=== PATIENT | female | born 1970 | race African-American/Black ===

== ENCOUNTER 2016-08-28 11:22 | Emergency (ER) | payer SELFPAY ==
[~2016-08-28] VITALS: Ht 165.1 cm; Wt 80.0 kg
[~2016-08-28 11:22] MED LIST: 1-ME1LIQ PO; AMLO5TAB2 PO; ASPI325T PO; CLON.2 PO; LISI-363 PO; NORC5TAB PO
[2016-08-28 11:23] VITALS: BP 220/104; PULSE 87; RESP 18; TEMP 98.4; O2SAT 99
[2016-08-28 12:00] VITALS: BP 224/101
--- NOTE | 2016-08-28 12:09 | PD ---
HPI Chief Complaint: Cold / Flu Symptoms Time Seen by Provider: 12:09 Travel History International Travel<30 days: No Contact w/Intl Traveler<30days: No Traveled to known affect area: No History of Present Illness HPI 45-year-old female presents to the emergency department for evaluation of productive cough for 2 weeks. She denies any fevers or chills. She does report congestion. She also reports chest pain with coughing only. Patient reports no chest pain before coughing. Patient also reports mild headache, not the most severe headache she has ever had. She states she's had it for approximately 1-2 months. Patient denies any abdominal pain. No nausea or vomiting. 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 She states she has been off her amlodipine and lisinopril since she was last seen. She denies any shortness of breath. According the records, she was last seen in March 2016. She states she does not currently have a primary care physician. She denies any other chronic medical problems. Patient denies any other complaints at this time. PFSH Past Medical History Arthritis: Yes Blood Disorders: No Anxiety: No Depression: No Heart Rhythm Problems: No Cancer: No Cardiovascular Problems: Yes High Cholesterol: Yes Chest Pain: Yes Congestive Heart Failure: No Cerebrovascular Accident: No Diminished Hearing: No Deep Vein Thrombosis: Yes Endocrine: No Gastrointestinal Disorders: No Genitourinary: No Headaches: Yes Hypertension: Yes Immune Disorder: No Implanted Vascular Access Dvce: No Musculoskeletal: Yes Neurologic: Yes Psychiatric: Yes Reproductive: No Respiratory: No Migraines: No Myocardial Infarction: No Seizures: No ?: Not : 4 Para: 3 : 1 Tubal Ligation: Yes Past Surgical History Abdominal Surgery: No Cardiac Surgery: No Ear Surgery: No Endocrine Surgery: No Eye Surgery: No Genitourinary Surgery: No Gynecologic Surgery: Yes (ABLATION) Neurologic Surgery: No Oral Surgery: No Pacemaker: No Thoracic Surgery: No Other Surgery: Yes (AMP OF TIP OF LEFT 3RD, 4TH TOES, FEMORAL STENTS BILAT) Social History Alcohol Use: Yes (occ) Tobacco Use: Yes (OCC) Substance Use: No Allergies-Medications (Allergen,Severity, Reaction): Coded Allergies: No Known Allergies (Verified , 08/28/16) Reported Meds & Prescriptions Reported Meds & Active Scripts Active No Active Prescriptions or Reported Medications Review of Systems Except as stated in HPI: all other systems reviewed are Neg Physical Exam Narrative GENERAL: Well-nourished, well-developed female patient, ambulatory. Afebrile. SKIN: Focused skin assessment warm/dry. HEAD: Normocephalic. Atraumatic. EYES: No scleral icterus. No injection or drainage. NECK: Supple, trachea midline. No JVD or lymphadenopathy. CARDIOVASCULAR: Regular rate and rhythm without murmurs, gallops, or rubs. RESPIRATORY: Breath sounds equal bilaterally. No accessory muscle use. Lungs sounds are clear to auscultation. GASTROINTESTINAL: Abdomen soft, non-tender, nondistended. MUSCULOSKELETAL: No cyanosis, or edema. BACK: Nontender without obvious deformity. No CVA tenderness. Data Data Last Documented VS Vital Signs Date Time Temp Pulse Resp B/P Pulse Ox O2 Delivery O2 Flow Rate FiO2 08/28/16 12:30 68 16 216/108 97 Room Air 08/28/16 11:23 98.4 Orders Chest, Single Ap (08/28/16 ) Amlodipine (Norvasc) (08/28/16 12:15) Lisinopril (Prinivil) (08/28/16 12:15) MDM Medical Decision Making Medical Screen Exam Complete: Yes Emergency Medical Condition: Yes Medical Record Reviewed: Yes Interpretation(s) Last Impressions Chest X-Ray 08/28/16 0000 Signed Impressions: Service Date/Time: Sunday, August 28, 2016 12:21 - CONCLUSION: No acute disease. Weston Jose MD Differential Diagnosis URI versus bronchitis versus pneumonia versus hypertension Narrative Course 45-year-old female presents to the emergency department for evaluation of productive cough for 2 weeks. She is also found to be hypertensive in triage, 224/101. He states that she has a history of the same and has been off her blood pressure medication since March. Patient does appear well on exam. Lungs sounds are clear to auscultation. Chest x-ray is ordered and pending. Patient is given amlodipine 5 mg by mouth and lisinopril 20 mg by mouth. Chest x-ray shows no acute disease. Patient will be discharged with a prescription for Tessalon Perles for cough. She'll also be given prescription for amlodipine and lisinopril for her chronic hypertension. She is instructed to follow-up with a primary care physician. She is given information for community clinic. The patient verbalizes agreement and understanding. Diagnosis Primary Impression: Viral URI with cough Additional Impression: Hypertension Qualified Code: I10 - Essential hypertension Referrals: [facility] 2 days Patient Instructions: Chronic Hypertension (ED), General Instructions, Upper Respiratory Infection (ED) Additional Instructions: Take blood pressure medications as directed. Please follow up at the community clinic for blood pressure management. Information is provided. Take benzonatate capsules as directed as needed for cough Return to the emergency department for any acute, worsening of symptoms. Med/Other Pt SpecificInfo: Prescription(s) given Scripts Benzonatate 200 Mg [id number] Mg PO TID PRN (COUGH) #21 CAP Ref 0 Prov:Candice Gerardo 08/28/16 Lisinopril 20 Mg Tab20 Mg PO DAILY #30 TAB Ref 0 Prov:Candice Gerardo 08/28/16 Amlodipine 5 Mg Tab5 Mg PO DAILY #30 TAB Ref 0 Prov:Candice Gerardo 08/28/16 Disposition: 01 DISCHARGE HOME Condition: Stable Candice Gerardo Aug 28, 2016 12:09
[2016-08-28] MEDS ORDERED: LISINOPRIL 20 MG TAB PO ONE (12:15)
[2016-08-28] MEDS ORDERED: amLODIPine BESYLATE 5 MG TAB PO ONE (12:15)
[2016-08-28 12:30] VITALS: BP 216/108; PULSE 68; RESP 16; O2SAT 97
--- NOTE | 2016-08-28 13:46 | RADRPT ---
EXAM DATE/TIME: 08/28/2016 12:21 [place] COMPARISON: CHEST SINGLE AP, April 18, 2016, 7:39. INDICATIONS : Short of breath. MEDICAL HISTORY : None. SURGICAL HISTORY : None. ENCOUNTER: Initial ACUITY: 2 weeks PAIN SCORE: 0/10 LOCATION: Bilateral chest FINDINGS: A single view of the chest demonstrates the lungs to be symmetrically aerated without evidence of mas s, infiltrate or effusion. The cardiomediastinal contours are unremarkable. Osseous structures are intact. CONCLUSION: No acute disease. Weston Jose MD on August 28, 2016 at 13:44 Board Certified Radiologist. This report was verified electronically.
--- NOTE | 2016-08-28 13:52 | PD ---
Data Data Last Documented VS Vital Signs Date Time Temp Pulse Resp B/P Pulse Ox O2 Delivery O2 Flow Rate FiO2 08/28/16 12:30 68 16 216/108 97 Room Air 08/28/16 11:23 98.4 Orders Chest, Single Ap (08/28/16 ) Amlodipine (Norvasc) (08/28/16 12:15) Lisinopril (Prinivil) (08/28/16 12:15) MDM Supervised Visit with ASAD: Yes Narrative Course I, Dr. Walker, have reviewed the advance practice practioner's documentation and am in agreement, met with the patient face to face, made the diagnosis, and the medical decision making was done by me. *My assessment and Findings: 45-year-old female here with 2 weeks of productive cough. Associated mild headache. No fevers or chills. No hemoptysis. Well- appearing on exam, though hypertensive. Lungs are clear to auscultation bilaterally. Differential includes viral syndrome, influenza, bronchitis, pneumonia, asymptomatic hypertension. Chest x-ray unremarkable. Patient reassured and discharged home and encouraged to follow up with primary care provider to establish care for her hypertension. Scripts No Active Prescriptions or Reported Meds Jeannette Walker MD Aug 28, 2016 13:52
[2016-08-28] MEDS ORDERED: AMLO5TAB2 PO (13:57)
[2016-08-28] MEDS ORDERED: BENZ1CAP34 PO (13:57)
[2016-08-28] MEDS ORDERED: LISI-515 PO (13:57)
== END 2016-08-28 14:36 | disposition home or self-care (01) ==
LOC: NEPD 11:22
DX: J06.9 Acute upper respiratory infection, unspecified (principal); R05 Cough; I10 Essential (primary) hypertension; R51 Headache; E78.00 Pure hypercholesterolemia, unspecified; Z86.718 Personal history of other venous thrombosis and embolism; Z72.0 Tobacco use
CPT/HCPCS: 71010; 99283

== ENCOUNTER 2017-11-03 10:08 | Emergency (ER) | payer SELFPAY ==
[~2017-11-03] VITALS: Ht 165.1 cm; Wt 68.0 kg
[~2017-11-03 10:08] MED LIST changes: -1-ME1LIQ PO; -ASPI325T PO; +BENZ1CAP51 PO; -CLON.2 PO; -LISI-363 PO; +LISI-515 PO; -NORC5TAB PO
[2017-11-03 10:11] VITALS: BP 200/83; PULSE 55; RESP 16; TEMP 97.7; O2SAT 100
[2017-11-03 10:28] VITALS: BP 168/71; O2SAT 98
[2017-11-03] MEDS ORDERED: cloNIDine HCL 0.1 MG TAB PO ONE (10:30)
--- NOTE | 2017-11-03 11:11 | PD ---
Physical Exam Date Seen by Provider: Nov 03, 2017 Time Seen by Provider: 11:09 Narrative 47-year-old female came to the emergency room with history of some bumps that she has noticed on her left upper thigh laterally. Patient says it has been couple days and she has noticed this. It hurts. She was concerned about blood clot because she has history of blood clot in her legs apparently. But she also says that she had a stent put in in her groin. She has also noticed some bumps on her left upper abdominal wall. Vital signs otherwise stable. Patient is seen by my nurse practitioner and I am supervising her. The exam showed some subcutaneous nodules on her left lateral upper thigh that were slightly tender to touch. There was no erythema of the skin overlying. I could not feel the bumps on her anterior abdominal wall. 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 I have asked the nurse practitioner to do an STACEY. If the STACEY is within normal limits no further intervention regarding the left leg pain needs to be done. Data Data Last Documented VS Vital Signs Date Time Temp Pulse Resp B/P (MAP) Pulse Ox O2 Delivery O2 Flow Rate FiO2 11/03/17 15:50 11/03/17 15:36 98.2 54 18 100 Room Air Orders Orders Basic Metabolic Panel (Bmp) (11/03/17 10:22) Clonidine (Catapres) (11/03/17 10:30) Cta Runoff W Iv Contrast W 3d (11/03/17 ) Iohexol 350 Inj (Omnipaque 350 Inj) (11/03/17 13:00) Ed Discharge Order (11/03/17 15:11) Labs Laboratory Tests Test 11/03/17 10:50 Blood Urea Nitrogen 19 MG/DL Creatinine 1.25 MG/DL Random Glucose 95 MG/DL Calcium Level 8.3 MG/DL Sodium Level 141 MEQ/L Potassium Level 3.9 MEQ/L Chloride Level 106 MEQ/L Carbon Dioxide Level 27.2 MEQ/L Anion Gap 8 MEQ/L Estimat Glomerular Filtration Rate 55 ML/MIN [facility] Supervised Visit with ASAD: Yes Narrative Course 11:28 AM the STACEY value comes out to 0.8. I have ordered a CT angiogram with runoffs. Awaiting for the CT to be done and resulted. 3:[address] angiogram of the leg shows moderate stenosis on the left lower extremity arterial system. This is new since 2012 CT. I discussed the case with Dr. Karimi and he was okay with discharging the patient home and follow- up in his office. I discussed all this with the patient. I also emphasized that she should not be smoking or doing any cocaine. Incidentally as I was talking to her I noticed that she had a saddle nose and upon closer examination her nasal septum is gone. Upon asking she did say that she used to use cocaine heavily up until 2007 but apparently now she does not use cocaine anymore. She will go home on aspirin 325 mg daily. Follow-up with a vascular surgeon. Physician Communication Physician Communication Dr. Karimi Scripts Aspirin (Aspirin) 325 Mg Tab 325 MG PO DAILY, #30 TAB 0 Refills Prov: Kimberlee Dow 11/03/17 Amlodipine (Amlodipine) 10 Mg Tab 10 MG PO DAILY for Blood Pressure Management, #30 TAB 0 Refills Prov: Kimberlee Dow 11/03/17 Lisinopril (Lisinopril) 20 Mg Tab 20 MG PO DAILY, #30 TAB 0 Refills Prov: Kimberlee Dow 11/03/17 Theresa Avila MD Nov 03, 2017 11:11
[2017-11-03 11:46] LABS: BICARBONATE 27.2 MEQ/L (21.0-32.0); CALCIUM 8.3 MG/DL (8.5-10.1); CREATININE 1.25 MG/DL (0.50-1.00)
--- NOTE | 2017-11-03 12:29 | PD ---
HPI Chief Complaint: Lump, Cyst, Hernia Time Seen by Provider: 10:15 Travel History International Travel<30 days: No Contact w/Intl Traveler<30days: No Traveled to known affect area: No History of Present Illness HPI Patient is a 47-year-old female presenting to the emergency department for evaluation of bumps to her left lateral leg and her abdomen. Patient states she noticed them 2 weeks ago, they are tender. Patient also reports a history of hypertension, she is on current medications because they are too expensive and she does not have a primary doctor. Patient states she had stents placed a few years ago, she is not on any blood thinners. She states she has pain in her left leg when she walks, she describes as cramping. Pain is somewhat relieved with rest. At its worst is a 6 out of 10. Symptom onset was gradual, symptoms are mild in nature regarding the lumps. PFSH Past Medical History Arthritis: Yes Cardiovascular Problems: Yes (Peripheral artery disease) High Cholesterol: Yes Chest Pain: Yes Headaches: Yes Hypertension: Yes Psychiatric: Yes Reproductive: No Respiratory: No Migraines: No Myocardial Infarction: No Seizures: No ?: Not : 4 Para: 3 : 1 Tubal Ligation: Yes Past Surgical History Gynecologic Surgery: Yes (ABLATION) Other Surgery: Yes (AMP OF TIP OF LEFT 3RD, 4TH TOES, FEMORAL STENTS BILAT) Social History Alcohol Use: No Tobacco Use: No Substance Use: No Allergies-Medications (Allergen,Severity, Reaction): Coded Allergies: No Known Allergies (Verified Adverse Reaction, Unknown, 11/03/17) Reported Meds & Prescriptions Reported Meds & Active Scripts Active Benzonatate 200 Mg Cap 200 Mg PO TID PRN Lisinopril 20 Mg Tab 20 Mg PO DAILY Amlodipine (Amlodipine Besylate) 5 Mg Tab 5 Mg PO DAILY Review of Systems Except as stated in HPI: all other systems reviewed are Neg Cardiovascular: Positive: Claudication Skin: Positive Lumps Physical Exam Narrative GENERAL: Well-developed, well-nourished, alert -Citizen Of [place] female. Presenting in no acute distress. SKIN: Warm and dry. HEAD: Atraumatic. Normocephalic. I do not feel any significant palpable lumps. EYES: Pupils equal and round. No scleral icterus. No injection or drainage. ENT: No nasal bleeding or discharge. Mucous membranes pink and moist. NECK: Trachea midline. No JVD. CARDIOVASCULAR: Regular rate and rhythm. Pedal pulses by Doppler RESPIRATORY: No accessory muscle use. Clear to auscultation. Breath sounds equal bilaterally. GASTROINTESTINAL: Abdomen soft, non-tender, nondistended. Hepatic and splenic margins not palpable. MUSCULOSKELETAL: Extremities without clubbing, cyanosis, or edema. No obvious deformities. NEUROLOGICAL: Awake and alert. No obvious cranial nerve deficits. Motor grossly within normal limits. Five out of 5 muscle strength in the arms and legs. Normal speech. PSYCHIATRIC: Appropriate mood and affect; insight and judgment normal. Data Data Last Documented VS Vital Signs Date Time Temp Pulse Resp B/P (MAP) Pulse Ox O2 Delivery O2 Flow Rate FiO2 11/03/17 10:28 54 16 168/71 (103) 98 Room Air 11/03/17 10:11 97.7 Orders Orders Basic Metabolic Panel (Bmp) (11/03/17 10:22) Clonidine (Catapres) (11/03/17 10:30) Cta Runoff W Iv Contrast W 3d (11/03/17 ) Iohexol 350 Inj (Omnipaque 350 Inj) (11/03/17 13:00) Labs Laboratory Tests Test 11/03/17 10:50 Blood Urea Nitrogen 19 MG/DL Creatinine 1.25 MG/DL Random Glucose 95 MG/DL Calcium Level 8.3 MG/DL Sodium Level 141 MEQ/L Potassium Level 3.9 MEQ/L Chloride Level 106 MEQ/L Carbon Dioxide Level 27.2 MEQ/L Anion Gap 8 MEQ/L Estimat Glomerular Filtration Rate 55 ML/MIN [facility] Medical Decision Making Medical Screen Exam Complete: Yes Emergency Medical Condition: Yes Interpretation(s) Last Impressions Aorta w/Runoff CTA 11/03/17 0000 Signed Impressions: CONCLUSION: 1. Single vessel runoff bilaterally at the ankles similar to prior exam from 2 012. 2. There is a new moderate stenosis proximal right common iliac artery compare d with 2011. 3. 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 4. Mild stenosis of the proximal celiac and superior mesenteric arteries. Laboratory Tests Test 11/03/17 10:50 Blood Urea Nitrogen 19 MG/DL Creatinine 1.25 MG/DL Random Glucose 95 MG/DL Calcium Level 8.3 MG/DL Sodium Level 141 MEQ/L Potassium Level 3.9 MEQ/L Chloride Level 106 MEQ/L Carbon Dioxide Level 27.2 MEQ/L Anion Gap 8 MEQ/L Estimat Glomerular Filtration Rate 55 ML/MIN Vital Signs Date Time Temp Pulse Resp B/P (MAP) Pulse Ox O2 Delivery O2 Flow Rate FiO2 11/03/17 10:28 54 16 168/71 (103) 98 Room Air 11/03/17 10:22 16 11/03/17 10:11 97.7 55 16 200/83 (122) 100 Differential Diagnosis Hypertension versus hypertensive urgency versus lipoma versus abscess versus cellulitis versus claudication versus PID versus occlusion versus other Narrative Course Patient is a 47-year-old female that presented to the emergency department for evaluation of lumps that she noticed the lateral aspect of her left leg and her upper abdomen. Regarding that exam not palpating any significant lumps, there is no tenderness on exam. Patient may likely have felt a lipoma. Additionally she has a history of hypertension and peripheral artery disease, she is not currently on any medications due to cost. Will check a basic chemistry to assess renal function. Patient was on lisinopril and amlodipine in the past. Patient was also seen and evaluated by my attending physician. STACEY was calculated, a CT angiogram with runoff is ordered and pending. Patient has a history of peripheral artery disease with popliteal stent placed. CT angiogram shows a single vessel runoff bilaterally at the ankles similar to prior exam. There is a new moderate stenosis proximal right common iliac artery compared with 2012. 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 Mild stenosis of the proximal celiac and superior mesenteric arteries. Findings were discussed with Dr. Elise by Dr. Avila. Patient will follow-up in his office, patient was advised to take 325 mg of aspirin daily. She was advised to avoid use of cocaine and tobacco. Patient will be prescribed lisinopril and amlodipine for blood pressure control. She was encouraged return to emergency department any new or worsening symptoms. Patient is stable for discharge. Diagnosis Primary Impression: Peripheral artery disease Additional Impressions: Hypertension Qualified Codes: I10 - Essential (primary) hypertension Tobacco abuse counseling Referrals: Lynsey Karimi MD 1 week Patient Instructions: Cigarette Smoking and Your Health (GEN), General Instructions, How to Stop Smoking (ED), Hypertension (ED), Peripheral Artery Disease (ED) Additional Instructions: Avoid tobacco use Avoid use of cocaine Follow-up with Dr. Karimi, a mandatory referral has been made for you Follow-up at the [facility] Take blood pressure medicine daily as directed Med/Other Pt SpecificInfo: Prescription(s) given Scripts Aspirin (Aspirin) 325 Mg Tab 325 MG PO DAILY, #30 TAB 0 Refills Prov: Kimberlee Dow 11/03/17 Amlodipine (Amlodipine) 10 Mg Tab 10 MG PO DAILY for Blood Pressure Management, #30 TAB 0 Refills Prov: Kimberlee Dow 11/03/17 Lisinopril (Lisinopril) 20 Mg Tab 20 MG PO DAILY, #30 TAB 0 Refills Prov: Kimberlee Dow 11/03/17 Disposition: 01 DISCHARGE HOME Condition: Stable Kimberlee Dow Nov 03, 2017 12:29
[2017-11-03] MEDS ORDERED: IOHEXOL 350 MG/ML 10 ML VIAL (for RAD DIAG) IVCONTRAST ONE (13:00)
--- NOTE | 2017-11-03 14:30 | RADRPT ---
EXAM DATE: 11/03/2017 2:10 PM EDT AGE/SEX: 47 years / Female INDICATIONS: Left leg pain and swelling for two weeks. CLINICAL DATA: This is the patient's initial encounter. Patient reports that signs and symptoms have been present for 2 weeks and indicates a pain score of 5/10. MEDICAL/SURGICAL HISTORY: Cardiovascular disease. Hypertension. Tubal ligation. RADIATION DOSE: 3.38 CTDI (mGy) COMPARISON: C, CTA RUNOFF W 3D RECON, 01/17/2012. . TECHNIQUE: Volumetric scanning was performed using a multi-row detector CT scanner during bolus infu dudley of 96 ml Omnipaque 350 (iohexol) nonionic water-soluble contrast as a single exam dose. The d ronnell was post processed with a variety of visualization algorithms including full volume maximum inten sity projection, multi-planar sliding thin slab reformation, curved planar reformation, and surface r endering techniques. Using automated exposure control and adjustment of the mA and/or kV according t o patient size, radiation dose was kept as low as reasonably achievable to obtain optimal diagnostic quality images. FINDINGS: The aorta is atherosclerotic without aneurysm or occlusion. Mild stenosis of the proximal celiac and superior mesenteric arteries. Inferior mesenteric artery is patent. Bilateral iliac stents are present. There is a focal moderate stenosis proximal right common iliac ar rachel. Left iliac stent is occluded and there is reconstitution of the external iliac distally via col lateral vessels. In the left lower extremity the profunda and superficial femoral artery are patent as is the poplitea l. Dominant runoff is perineal with diminutive posterior tibial and anterior tibial which occludes mi d calf as on previous exam. Right lower extremity reveals patent profunda and SFA. Dominant runoff is perineal. CONCLUSION: 1. Single vessel runoff bilaterally at the ankles similar to prior exam from 2011. 2. There is a new moderate stenosis proximal right common iliac artery compared with 2011. 3. 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 4. Mild stenosis of the proximal celiac and superior mesenteric arteries. Electronically signed by: Abhijit More MD 11/03/2017 2:29 PM EDT
[2017-11-03] MEDS ORDERED: LISI-515 PO (15:11)
[2017-11-03] MEDS ORDERED: AMLO10TA2 PO (15:11)
[2017-11-03] MEDS ORDERED: ASPI-183 PO (15:11)
[2017-11-03 15:36] VITALS: BP 167/79; TEMP 98.2; O2SAT 100
== END 2017-11-03 15:51 | disposition home or self-care (01) ==
LOC: NEPD 10:08
DX: I73.9 Peripheral vascular disease, unspecified (principal); I10 Essential (primary) hypertension; I77.1 Stricture of artery; M19.90 Unspecified osteoarthritis, unspecified site; E78.00 Pure hypercholesterolemia, unspecified; Z79.899 Other long term (current) drug therapy
CPT/HCPCS: 75635; 80048; 99285; Q9967